=== PATIENT | female | born 1990 | race Caucasian/White ===

== ENCOUNTER 2016-07-26 14:54 | Emergency (ER) | payer SELFPAY ==
--- NOTE | ~2016-07-26 | ER ---
PATIENT'S NAME: CIARA GIRALDO [facility] AGE: 25 Y [address] ROOM: [place] [address] LOCATION: ED ADMIT DATE: 07/26/2016 ER/Outpatient Report DISCHARGE DATE: 07/26/2016 FAMILY PHYSICIAN: PHYSICIAN, NO ATTENDING PHYSICIAN: Aryan Arredondo Time of Patient Arrival: 1454 hours. Time of Patient Evaluation: 1525 hours. The patient was not seen in a timely manner due to busy ER. CHIEF COMPLAINT: Dental pain. HISTORY OF PRESENT ILLNESS: This is a 25-year-old female who presents to the ER. She states she is having some right dental pain and lower dental pain for the past 3 days. The patient states she has known cavities in that area. She did break off a portion of her tooth a while back. She states that she did try to get into her dentist, but has not been able to until August 05. The patient states that she was here in [place] for the wrestling meet, so they thought they would come here and get her evaluated. She has been taking Tylenol and ibuprofen, which does help her pain. She denies any fevers. ALLERGIES: NO KNOWN ALLERGIES. MEDICATIONS: None. PAST MEDICAL HISTORY: Abscess in her teeth in the past and dental caries. SOCIAL HISTORY: Smokes half pack a day, last 12 years. REVIEW OF SYSTEMS: CONSTITUTIONAL: Denies change in weight or fatigue. HEENT: She is complaining of dental pain. HEM: No easy bruising or bleeding. SKIN: No lesions or rashes. PHYSICAL EXAMINATION: VITAL SIGNS: Height 5 feet 6 inches stated, weight 92.3 kg taken, blood pressure is 106/61, pulse 76, respirations 18, temperature 98.2 degrees PATIENT'S NAME: CIARA GIRALDO [facility] AGE: 25 Y [address] ROOM: [place] [address] LOCATION: [facility] ADMIT DATE: 07/26/2016 ER/Outpatient Report DISCHARGE DATE: 07/26/2016 FAMILY PHYSICIAN: PHYSICIAN, NO ATTENDING PHYSICIAN: Aryan Arredondo tympanically, saturations 98% on room air. Aniya Coma Score is 15. GENERAL: Alert, calm, well-developed female, in no acute distress. HEENT: Head: Normocephalic. Eyes: Pupils are equal and reactive to light. Ears: TMs display good light reflexes bilaterally. Auditory canals clear. Nose: Turbinates pink with no drainage. Throat: No exudates or erythema. She does have widespread dental decay. Her right lower molar is broken off. Her gums are not inflamed. NECK: Supple. No lymphadenopathy. LUNGS: Clear auscultation bilaterally. No wheezes or crackles. Normal respiratory effort. HEART: Regular rate and rhythm. No lifts, thrills, or murmurs. LABORATORY AND X-RAYS: None were done. IMPRESSION: Right lower dental pain. ASSESSMENT AND PLAN: We will dismiss the patient to home with a prescription for amoxicillin to use as directed. I will send her home with a prescription for [place] to use for severe pain. Otherwise, she may just to use ibuprofen. She needs to follow up with her dentist as soon as possible. The patient understands and agrees with care. ROBIN DANIEL PA-C FOR MD JUAN A BLEDSOE/megan /[id number] d: 07/26/162200 t: 08/04/16 173, OUTPATIENT REPORT
[~2016-07-26 14:54] MED LIST: CLEOCIN HCL300 MG PO; CLEOCIN PE75 MG/5 ML PO; MOTRIN800 MG PO; NORCO 5-325 MG1 TAB PO; PERIDEX15 ML PO
== END 2016-07-26 15:54 | disposition disaster alternative care site (69) ==
LOC: GMED 14:54
DX: K08.89 Other specified disorders of teeth and supporting structures (principal); F17.210 Nicotine dependence, cigarettes, uncomplicated

== ENCOUNTER 2016-08-30 12:16 | Inpatient (IN) | payer SELFPAY ==
[~2016-08-30] VITALS: Ht 167.6 cm; Wt 86.4 kg
--- NOTE | ~2016-08-30 | HP ---
PATIENT'S NAME: CIARA GIRALDO [facility] AGE: 25 Y [address] ROOM: [place] [address] LOCATION: [facility] ADMIT DATE: 08/30/2016 History & Physical DISCHARGE DATE: FAMILY PHYSICIAN: PHYSICIAN, NO ATTENDING PHYSICIAN: Ab LAL DATE OF SERVICE: CHIEF COMPLAINT: Tooth infection. HISTORY OF PRESENT ILLNESS: The patient is a 25-year-old female with a history of tobacco use, who presents to the emergency department due to tooth infection. The patient was started on antibiotics 3 weeks ago for dental abscess with amoxicillin. However, her infection has been getting worse, which led her to visit her dentist. The patient was seen by the dentist and was placed on another week of amoxicillin. Prior to that, she was on 2 weeks of amoxicillin, and she was started on another week of amoxicillin, however, symptoms did not improve. She reports that her pain was unbearable and is having hard time opening her mouth due to pain. She also reports swelling of her right jaw. She denies any shortness of breath, inability to clear secretion, drooling, change in voice, fever, chills, chest pain, neck pain, nausea, vomiting, diarrhea, dizziness, and vision change. In the past, she has had the same issue on her left jaw and has had surgery by Dr. Patton, which required drainage placement. The patient was seen today in the emergency department. Dr. Patton was called for consultation, but, however, he is not in the office until Thursday. The patient was deemed to fail outpatient treatment and is admitted for IV antibiotics, and Surgery consult with Dr. Patton on Thursday. PAST MEDICAL HISTORY: Tobacco use. PAST SURGICAL HISTORY: Oral surgery. FAMILY HISTORY: The patient reports her dad has coronary artery disease. SOCIAL HISTORY: She is a smoker, and she works at [employer]. ALLERGIES: NO KNOWN DRUG ALLERGIES. PATIENT'S NAME: CIARA GIRALDO [facility] AGE: 25 Y [address] ROOM: [place] [address] LOCATION: [facility] ADMIT DATE: 08/30/2016 History & Physical DISCHARGE DATE: FAMILY PHYSICIAN: PHYSICIAN, NO ATTENDING PHYSICIAN: Ab LAL MEDICATIONS: She takes: 1. Ibuprofen. 2. Amoxicillin. REVIEW OF SYSTEMS: A 10-point system was evaluated. All negative except what is stated in the HPI. PHYSICAL EXAMINATION: VITAL SIGNS: The patient was noted to be febrile with a temp of 100.7. GENERAL APPEARANCE: The patient is alert and awake, sitting on a table, in no acute distress. HEAD: Atraumatic, normocephalic. EYES: Extraocular muscle intact. Sclerae nonicteric. MOUTH: Oral: The patient has right submandibular swelling. Sublingual floor shows no signs of swelling or erythema. Oral airway is patent with Mallampati score of Class II with complete visualization of the uvula, poor oral dentition. NECK: No JVD. Supple. CHEST: Clear to auscultation bilaterally. No rhonchi, wheezing, or rales. HEART: Regular rate and rhythm. No murmur, rubs, or gallops. ABDOMEN: Soft, nontender, nondistended. Bowel sounds present. SKIN: Warm to touch. No skin lesion noted. HALF SOLE FITTER: Alert and oriented x3. Motor and sensory grossly intact. MUSCULOSKELETAL: No swelling or effusion noted. Range of motion intact. LABORATORY DATA: White blood count of 13.1, hemoglobin of 13.4, and platelet of 284. Creatinine of 0.8 and BUN of 5 with sodium of 141. IMAGING DATA: CT of head and neck with contrast shows swelling and inflammation around the right mandible, right jaw line, and extends down to the right neck without definable abscess. ASSESSMENT AND PLAN: The patient is a 25-year-old patient, who presents here with failed odontogenic infection. 1. Odontogenic infection. We will admit the patient as the patient has failed outpatient treatment. We will start the patient on clindamycin 600 mg IV q.8. We will also have a serial airway examination for possible compromise of airway. If there is a change of airway evaluation, we will consult ENT. We will also acquire blood culture. 2. We will consult Dr. Patton on Thursday morning for possible surgical PATIENT'S NAME: CIARA GIRALDO [facility] AGE: 25 Y [address] ROOM: [place] [address] LOCATION: [facility] ADMIT DATE: 08/30/2016 History & Physical DISCHARGE DATE: FAMILY PHYSICIAN: PHYSICIAN, MASSIEL ATTENDING PHYSICIAN: Ab LAL intervention. We will start the patient on a mechanical soft diet as she reports that she has pain when she opens her mouth wide. 3. Tobacco use. Greater than 3 minutes but less than 10 minutes was spent on smoking cessation discussion. MD PAYAM GOMES/megan /[id number] D: T: 033 HISTORY & PHYSICAL
--- NOTE | ~2016-08-30 | DS ---
PATIENT'S NAME: CIARA GIRALDO [facility] AGE: 25 Y [address] ROOM: [id number] [place], [place] [address] [address]ATION: [facility] ADMIT DATE: 08/30/2016 Discharge Summary DISCHARGE DATE: 09/01/2016 FAMILY PHYSICIAN: , NO ATTENDING PHYSICIAN: Ab ANDINO FINAL DIAGNOSES: 1. Right second molar abscess. 2. Tobaccoism. CONSULTANTS ON THE CASE: Dr. Patton. HOSPITAL COURSE: Please see details of admission and H and P by Dr. Andino. Briefly, the patient was admitted secondary to the pain and jaw movement deficits. Scans initially showed a potential abscess and the patient was admitted for IV antibiotics after failing outpatient antibiotics. The patient was monitored closely with serial airway examinations with no signs or symptoms of airway compromise. The patient did get pancultured without any signs of positivity on hospital day 2. The patient was feeling significantly better after 24 hours of IV antibiotics and pain control. We were able to discontinue her fluids on hospital day 2. On the , Dr. Patton was able to evaluate the patient and felt the need for I and D and possible extraction of the right second molar. The patient was comfortable with this plan and was discharged in stable condition. DIAGNOSTICS: On admission, sodium 141, potassium 3.5, chloride 107, bicarb 27, glucose 92, BUN 5, and creatinine 0.8. Quantitative hCG was less than 1. CBC on admission was white blood cell count was 13.1, hemoglobin 13.4, hematocrit 40.2, and platelets 284 with 89% segs and 3% bands. Lactate on admission was 0.7. CT scan of the neck with contrast shows swelling and inflammation around the right mandible, right jawline extends down into the right neck. White blood cell count trended down to 8.3 on hospital day 2 then down to 5.9 on the day of discharge. Chemistries were unremarkable on the day of discharge. DISCHARGE INSTRUCTIONS: The patient is discharged to Dr. Patton's office. Diet is n.p.o. Activity as tolerated. The patient was strictly instructed no eating, drinking, or smoking prior to her scheduled operation this afternoon. She will follow up with Dr. Patton this afternoon as scheduled and per his discretion after the procedure. DISCHARGE MEDICATIONS: 1. [place] 5/325 1-2 tabs every 4 hours as needed. 2. Florastor 250 mg p.o. twice daily. 3. Ibuprofen as needed. PATIENT'S NAME: CIARA GIRALDO [facility] AGE: 25 Y [address] ROOM: [address] [place] [id number] LOCATION: [facility] ADMIT DATE: 08/30/2016 Discharge Summary DISCHARGE DATE: 09/01/2016 FAMILY PHYSICIAN: MASSIEL SAMUEL ATTENDING PHYSICIAN: Ab ANDINO I do appreciate participating in this patient's care and thank you very much for the ability to serve her while hospitalized at [facility]. Time spent coordinating details of discharge was 20 minutes of which was spent coordinating with consulting physician and care management, completion of medication reconciliation, and education to the patient and family on the above-mentioned diagnoses. ACOSTA ARREDONDO FOR KYRIE IRVING MD OSMAN/modl /[id number] d: 09/02/16 0544 t: 09/08/16 1418, DISCHARGE SUMMARY
--- NOTE | ~2016-08-30 | ER ---
PATIENT'S NAME: CIARA GIRALDO [facility] AGE: 25 Y [address] ROOM: [place] [address] LOCATION: [facility] [place] ADMIT DATE: 08/30/2016 ER/Outpatient Report DISCHARGE DATE: FAMILY PHYSICIAN: PHYSICIAN, NO ATTENDING PHYSICIAN: Ab LAL TIME SEEN: 1245 hours. HISTORY OF PRESENT ILLNESS: The patient is a 25-year-old female, who presents with swelling of her right jaw with a history of an infected tooth. The patient said 3 weeks ago, she was seen for toothache, was put on amoxicillin. The patient then developed more swelling and pain over the last 48 hours, had seen by her dentist in [place] yesterday. The patient was supposed to be referred to an oral surgeon. The patient states she has been unable to completely open her mouth. Denies any chills. ALLERGIES: NONE. HOME MEDICATIONS: 1. Ibuprofen. 2. Amoxicillin. MEDICAL HISTORY: Dental caries. She has had a problem with wisdom tooth in the distant past, requiring surgical extraction. SOCIAL HISTORY: Smoker, half pack a day. Denies alcohol. REVIEW OF SYSTEMS: GENERAL: Fever today. HEAD/EENT: Right back molar has been quite tender. She has developed swelling and tenderness in her right jaw and neck area. RESPIRATORY: No shortness of breath or cough. CARDIOVASCULAR: Negative for murmur. PHYSICAL EXAMINATION: VITAL SIGNS: Temperature of 100.7, respiratory rate 20, pulse 87, and O2 saturations 96% on room air. GENERAL APPEARANCE: Alert. Somewhat stressed. HEAD: Normocephalic. EYES: PERRL. PATIENT'S NAME: CIARA GIRALDO [facility] AGE: 25 Y [address] ROOM: [place] [address] LOCATION: [facility] ADMIT DATE: 08/30/2016 ER/Outpatient Report DISCHARGE DATE: FAMILY PHYSICIAN: PHYSICIAN, NO ATTENDING PHYSICIAN: Ab LAL EARS: TMs intact. MOUTH: She was unable to completely open her mouth. It is difficult to see her posterior pharynx. FACE: She had a marked swelling of the right side of her face, appeared to have some swelling and puffiness underneath her chin. Quite tender to palpation. SKIN: No rash noted. LABORATORY DATA AND X-RAYS: CMS: Potassium 3.5, calcium 8.2, and BUN low at 5. test was negative. CBC: White count 13.1, hemoglobin 13.4, and ANC was elevated at 12.1. Blood cultures x2 were drawn. CT of the soft tissue with contrast showed no abscess, it did show some swelling of the right mandibular node. ASSESSMENT: Probable abscessed tooth with possible early Norbert angina. PLAN: The patient will be admitted by the Hospitalist Service for IV antibiotics and ENT or Dr. Patton consult. IV was initiated here in the emergency room. ACOSTA FIORE FOR MD BILL BARRETO/megan /[id number] d: 08/30/16 2233 t: 09/05/16 0758, OUTPATIENT REPORT
[2016-08-30 13:40] LABS: HEMATOCRIT 40.2 % (33.0-46.0); HEMOGLOBIN 13.4 g/dL (11.0-15.0); MCH 30.2 pg (27.0-34.0); MCHC 33.3 gm/dL (32.0-36.5); MCV 90.7 fl (83.0-98.0); MPV 9.7 fl (9.4-12.4); PLATELET COUNT 284 K/uL (150-450); RBC 4.43 M/uL (3.50-5.00); RDW-CV 13.1 % (11.9-14.6); WBC 13.1 K/uL (4.0-11.0)
[2016-08-30 13:59] LABS: ALBUMIN 3.4 gm/dL (3.5-5.0); ALK PHOS 75 IU/L (33-138); ALT 19 IU/L (12-78); ANION GAP 10.5 (10.0-19.0); AST 8 IU/L (10-40); BLOOD UREA NITROGEN 5 mg/dL (6-24); CALCIUM 8.2 mg/dL (8.5-10.5); CHLORIDE 107 mMol/L (96-110); CO2 27 mMol/L (22-32); CREATININE 0.8 mg/dL (0.5-1.1); POTASSIUM 3.5 mMol/L (3.7-5.1); SODIUM 141 mMol/L (135-145); TOTAL BILIRUBIN 0.9 mg/dL (0.0-1.5); TOTAL PROTEIN 7.2 g/dL (6.0-8.4)
[2016-08-30 14:05] LABS: ESTIMATED GFR (MDRD EQUATION) > 60
[2016-08-30 14:08] LABS: ABSOLUTE NEUTROPHIL CT (ANC) 12.1 K/uL (1.8-7.8); BANDED NEUTROPHIL # 0.4 K/uL (0.0-0.1); BANDED NEUTROPHILS % 3 %; LYMPHOCYTE # 0.7 K/uL (0.8-4.0); LYMPHOCYTE % 5 %; MONOCYTE # 0.4 K/uL (0.0-1.0); SEGMENTED NEUTROPHIL # 11.7 K/uL (1.8-7.8); SEGMENTED NEUTROPHIL % 89 %
--- NOTE | 2016-08-30 16:30 | NUR ---
A 25 yr old female admitted from ER for c/o R) side facial swelling/dental abscess. Patient states being treated with Amoxicillin for the last 2 weeks and it has not gotten better. Was to start on Clindamycin yesterday but states they did not have the money yesterday and that they were going to pick it up today but when the patient woke up this morning the swelling had increased. No known allergies. Hx of a dental abscess in 2014 with surgery.
--- NOTE | 2016-08-30 19:21 | NUR ---
Significant Event: Patient admitted at 1615 from ER. R) side of jaw is swollen and a small red area noted under her jaw. Patient is able to swallow but can not open her mouth very wide. Patient states that her teeth are sensitive to cold. [place] 2 tabs given at 1400 in ER. Saline lock to her R) antecubital and is receiving Clindamycin IV q 8hrs. Follow up: Monitor pain. Continuous O2 sat monitoring.
--- NOTE | 2016-08-31 00:32 | NUR ---
SIGNIFICANT EVENT: Patient alert & oriented. VSS on RA - occasional tachypnea with pain. Has difficulty opening mouth wide enough to get an adequate view of throat. Noted swelling to R) jaw/neck with some redness. Patient denies shortness of breath or any difficulty taking in air, continuous pulse/ox. Difficulty getting pain under control with q8H PRN dose of [place]. MD contacted and frequency increased to 1 to 2 tabs q4H with a max of 10 tabs in 24 hour period. Labs show K+ of 3.5, CA 8.2, BUN 5, Albumin is low, increased WBCs. 2 [place] given x1 at 2100, next dose will be 0100 - patient requesting just 1 tab. Patient drinking well but had about 40 percent of dinner. IV to R) AC clotted off, would not flush - new PIV to L) posterior wrist, flushes well with good BR. Intermittent clindamycin to new IV site. SBA in room. Pleasant and cooperative with cares. Pleasant and cooperative with cares.
[2016-08-31 05:50] LABS: BASOPHIL % 0.1 %; EOSINOPHIL # 0.1 K/uL (0.0-0.5); HEMATOCRIT 37.7 % (33.0-46.0); HEMOGLOBIN 12.4 g/dL (11.0-15.0); IMMATURE GRANULOCYTE # 0.1 K/uL (0.0-0.3); IMMATURE GRANULOCYTE % 0.6 %; LYMPHOCYTE # 1.7 K/uL (0.8-4.0); LYMPHOCYTE % 20.2 %; MCH 29.7 pg (27.0-34.0); MCHC 32.9 gm/dL (32.0-36.5); MCV 90.2 fl (83.0-98.0); MONOCYTE # 1.1 K/uL (0.0-1.0); MONOCYTE % 12.8 %; NEUTROPHIL # (ANC) 5.4 K/uL (1.8-7.8); NEUTROPHIL % 65.3 %; NRBC % 0 /100WBC (0-0.00); PLATELET COUNT 226 K/uL (150-450); RBC 4.18 M/uL (3.50-5.00); RDW-CV 12.9 % (11.9-14.6); WBC 8.3 K/uL (4.0-11.0)
[2016-08-31] MEDS ORDERED: AMOXICILLIN875 MG PO (11:03)
[2016-08-31] MEDS ORDERED: ULTRAM50 MG PO (11:03)
--- NOTE | 2016-08-31 17:07 | NUR ---
Significant Event: PT HAS EDEMA TO RIGHT JAW/NECK AREA. NO REDNESS OR OPEN SORE. PT REPORTS THE SWELLING HAS DECREASED INSIDE MOUTH AND IN JAW AREA. PT WAS GIVEN NORCO 2 TABS LAST AT 1627. SHE RATED HER PAIN A "6". AQUA K PAD USED OFF/ON TODAY TO RIGHT JAW. HER ORAL INTAKE WAS 1800+ML TODAY. SHE WAS ABLE TO EAT SOME SOFT FOOD. PT IS UP INDEPENDENTLY IN HER ROOM. IVAB INFUSED WITHOUT DIFFICULTIES. PT REPORTS STARTING HER MENSES TODAY. Follow up: NPO p MN FOR POSSIBLE SURGERY TOMORROW.
--- NOTE | 2016-09-01 03:40 | NUR ---
Significant Event: PATIENT RATES PAIN @ 5-6 ON PAIN SCALE. WAS GIVEN 2 NORCO EVERY 4 HOURS FOR PAIN. NEXT MEDS WILL BE GIVEN AT 0415. ABLE TO TOLERATE WARM FLUIDS, CHICKEN NOODLE SOUP AND MASHED POTATOES. DRANK HOT CHOCOLATE. WAS MADE NPO AT MIDNIGHT EXCEPT FOR SIPS WITH MEDS. DR. MAHER TO BE NOTIFIED TO SEE PATIENT TODAY, WITH POSSIBLE SURGICAL REMOVAL OF TOOTH. IV CLINDAMYCIN CONTINUES PER SALINE LOCK. Follow up: DR. MAHER TO SEE TODAY
[2016-09-01 05:34] LABS: BASOPHIL % 0.3 %; EOSINOPHIL # 0.1 K/uL (0.0-0.5); EOSINOPHIL % 1.5 %; HEMATOCRIT 38.4 % (33.0-46.0); HEMOGLOBIN 12.5 g/dL (11.0-15.0); IMMATURE GRANULOCYTE % 0.3 %; LYMPHOCYTE # 1.7 K/uL (0.8-4.0); LYMPHOCYTE % 28.7 %; MCH 29.6 pg (27.0-34.0); MCHC 32.6 gm/dL (32.0-36.5); MONOCYTE # 0.7 K/uL (0.0-1.0); MONOCYTE % 12.1 %; MPV 9.8 fl (9.4-12.4); NEUTROPHIL # (ANC) 3.3 K/uL (1.8-7.8); NEUTROPHIL % 57.1 %; NRBC % 0 /100WBC (0-0.00); PLATELET COUNT 227 K/uL (150-450); RBC 4.22 M/uL (3.50-5.00); RDW-CV 12.9 % (11.9-14.6); WBC 5.9 K/uL (4.0-11.0)
[2016-09-01 05:51] LABS: ANION GAP 12.7 (10.0-19.0); BLOOD UREA NITROGEN 4 mg/dL (6-24); CALCIUM 8.7 mg/dL (8.5-10.5); CHLORIDE 105 mMol/L (96-110); CO2 26 mMol/L (22-32); CREATININE 0.8 mg/dL (0.5-1.1); ESTIMATED GFR (MDRD EQUATION) > 60; POTASSIUM 3.7 mMol/L (3.7-5.1); SODIUM 140 mMol/L (135-145)
--- NOTE | 2016-09-01 09:40 | NUR ---
Introduced self/role to patient and her Lucho, son also present. They lives in [place]. Inquired about insurance as they are listed as self pay? Lucho stated they have VA coverage but he can't find their card, is working on getting a replacement. I gave them a financial assistance form incase it was needed. Inquired if there was any concerns about filling any prescriptions? They said no. Informed them generally the cheapest in town is [facility] the [facility] if anything was needing to be filled once she left here. Per Ya Mirza plan is to be dismissed from here and she will go over to Dr. Patton's office. Wrote my name on her marker board, no needs to address at this time.
[2016-09-01] MEDS ORDERED: FLORASTOR250 MG PO (12:23)
[2016-09-01] MEDS ORDERED: NORCO 5-325 TA1 EACH PO (12:24)
--- NOTE | 2016-09-01 12:51 | NUR ---
Significant Event: Has remained NPO for OR this afternoon. Dismissed to go to [facility] to have tooth extracted by Dr Patton. Information faxed to them IE, lab results, CT results and ER report. Right lower jaw remains swollen and tender but not redness noted. She reports she is unable to fully open her mouth secondary to swelling. [place] 2 tabs given x2 with a sip of water, last at 1210. Patient understands and verbalizes she is not to eat, drink or smoke till after her surgery. IV remains in place for OR this pm. Written and verbal dismissal instructoins given. Follow up: Dismissed.
== END 2016-09-01 12:55 | disposition disaster alternative care site (69) | DRG 158 ==
LOC: GMED 12:16 → GMSU 15:20
PROVIDERS: Internal Medicine; Physician Assistant Medical; ADMIT Internal Medicine
DX: K04.7 Periapical abscess without sinus (principal); K12.2 Cellulitis and abscess of mouth; F17.210 Nicotine dependence, cigarettes, uncomplicated
CPT/HCPCS: J1650; J7030; J7050; Q9967